=== PATIENT | female | born 1975 | race Caucasian/White ===

== ENCOUNTER 2018-12-23 14:02 | Emergency (ER) | payer MEDICAID ==
[~2018-12-23] VITALS: Ht 154.9 cm; Wt 71.8 kg
[2018-12-23 14:03] VITALS: BP 148/65; PULSE 85; RESP 17; Ht 154.9 cm; Wt 71.8 kg
[2018-12-23] MEDS ORDERED: KETOROLAC 60 MG INJ IM STA (14:22)
[2018-12-23] MEDS ORDERED: NAPR-985 PO (15:08)
[2018-12-23] MEDS ORDERED: MED4DP PO (15:08)
[2018-12-23] MEDS ORDERED: HYDR-4011 PO (15:08)
--- NOTE | 2018-12-23 15:18 | ERD ---
ER Documentation Chief Complaint Chief Complaint RT SHOULDER PAIN X 1 DAY. DENIES ANY INJURY HPI 43-year-old female presenting with right shoulder pain times 1 day. Patient denies any recent falls. She is right-hand dominant. She is cleaning for a living. She states her pain is worse with movement she feels weak. She denies any neck pain. Took Advil with mild alleviation. Denies any numbness or tingling. Denies other medical problems. NKDA. Surgical history denies. Social history denies ROS All systems reviewed and are negative except as per history of present illness. Medications Home Meds Active Scripts Naproxen* (Naprosyn*) 500 Mg Tablet, 500 MG PO BID PRN for PAIN AND/OR INFLAMMATION, #30 TAB Prov:LUIZ IBARRA PA-C 12/23/18 Hydrocodone/Acetaminophen ([place] 5-325 Tablet) 1 Each Tablet, 1 TAB PO Q6H PRN for PAIN, #7 TAB Prov:LUIZ IBARRA PA-C 12/23/18 Methylprednisolone* (Medrol* DOSE PACK) 4 Mg/Dose-Pack Tab.ds.pk, 4 MG PO . DIRECTED, #1 PACKET Prov:LUIZ IBARRA PA-C 12/23/18 Allergies Allergies: Coded Allergies: No Known Drug Allergies (Verified Allergy, Unknown, 06/04/14) PMhx/Soc Medical and Surgical Hx: pt denies Surgical Hx History of Surgery: No Anesthesia Reaction: No Hx Neurological Disorder: No Hx Respiratory Disorders: Yes (ASTHMA) Hx Cardiac Disorders: No Hx Psychiatric Problems: No Hx Miscellaneous Medical Probl: No Hx Alcohol Use: No Hx Substance Use: No Hx Tobacco Use: No Smoking Status: Never smoker FmHx Family History: No diabetes, No coronary disease, No other Physical Exam Vitals Vital Signs Date Temp Pulse Resp B/P (MAP) Pulse Ox O2 O2 Flow FiO2 Time Delivery Rate 12/23/18 97.7 85 17 148/65 98 14:03 (92) Physical Exam GENERAL: The patient is well-appearing, well-nourished, in no acute distress CHEST: Clear to auscultation bilaterally. There are no rales, wheezes or rhonchi. HEART: Regular rate and rhythm. No murmurs, clicks, rubs or gallops. EXTREMITIES: Tender to palpation over the right shoulder with no obvious deformity. No erythema or warmth. No tender to palpation over the clavicle. Pulses intact. No neck tenderness. NEUROLOGIC: Alert and oriented. Cranial nerves II through XII intact. Motor strength in all 4 extremities with 5 out of 5 strength. Sensation grossly intact. Normal speech and gait. Babinski negative. DTR 2+ throughout. SKIN: There is no apparent rash or petechiae. The skin is warm and dry. Results 24 hrs Laboratory Tests Test 12/23/18 14:32 POC Beta HCG, Qualitative NEGATIVE Current Medications Medications Dose Sig/Malik Start Time Status Last (Trade) Ordered Route PRN Stop Time Admin Dose Reason Admin Ketorolac 60 mg ONCE STAT 12/23/18 DC 12/23/18 Tromethamine IM 14:22 14:49 (Toradol) 12/23/18 14:24 Procedures/MDM DIAGNOSTIC IMAGING REPORT Patient: ISSAC SLOAN : 1975 Age: 43 Sex: F MR #: [id number] DOS: 12/23/18 1422 Ordering MD: NORIS IBARRA PA-C Location: [facility] Room/Bed: PROCEDURE: XR right shoulder. CLINICAL INDICATION: shoulder pain TECHNIQUE: AP Internal and external rotation views and transscapular Y-view of the right shoulder were performed. COMPARISON: None. FINDINGS: There is normal osseous mineralization and alignment. No acute fracture or osseous lesion is identified. There are normal joints without evidence of arthritis or dislocation. The soft tissues are unremarkable. IMPRESSION: Unremarkable right shoulder. ER course: Sling given ED. Neuro intact pre-and post splint application. MDM: 43-year-old female presenting with pain to her right shoulder. I have low suspicion for acute fracture dislocation. I have low suspicion for tendon or ligament patient likely has muscular skeletal strain overuse injury. Patient is discharged with strict ER precautions and told to follow-up with primary care within 1-2 days for close evaluation. Patient is told if symptoms change or worsen to return immediately to the ER. All questions answered at discharge Departure Diagnosis: Primary Impression: Shoulder pain Condition: Stable Patient Instructions: Shoulder Pain (Uncertain Cause) Referrals: COMMUNITY CLINICS YOU HAVE RECEIVED A MEDICAL SCREENING EXAM AND THE RESULTS INDICATE THAT YOU DO NOT HAVE A CONDITION THAT REQUIRES URGENT TREATMENT IN THE EMERGENCY DEPARTMENT. FURTHER EVALUATION AND TREATMENT OF YOUR CONDITION CAN WAIT UNTIL YOU ARE SEEN IN YOUR DOCTORS OFFICE WITHIN THE NEXT 1-2 DAYS. IT IS YOUR RESPONSIBILITY TO MAKE AN APPOINTMENT FOR FOLOW-UP CARE. IF YOU HAVE A PRIMARY DOCTOR --you should call your primary doctor and schedule an appointment IF YOU DO NOT HAVE A PRIMARY DOCTOR YOU CAN CALL OUR PHYSICIAN REFERRAL HOTLINE AT IF YOU CAN NOT AFFORD TO SEE A PHYSICIAN YOU CAN CHOSE FROM THE FOLLOWING [facility] [address] [facility] [address] [facility] [facility] [address] [facility] [address] [facility] [address] [facility] [address] [facility]. [address] Additional Instructions: FOLLOW UP WITH YOUR PRIMARY CARE PHYSICIAN TOMORROW.Return to this facility if you are not improving as expected. LUIZ IBARRA PA-C Dec 23, 2018 15:18
== END 2018-12-23 15:20 | disposition home or self-care (01) ==
LOC: FTE 14:02
DX: M25.511 Pain in right shoulder (principal); J45.909 Unspecified asthma, uncomplicated
CPT/HCPCS: 73030; 81025; 96372; J1885; Z7502; Z7610

== ENCOUNTER 2019-06-29 23:10 | Emergency (ER) | payer MEDICAID ==
[~2019-06-29] VITALS: Ht 154.9 cm; Wt 73.7 kg
[~2019-06-29 23:10] MED LIST: ALBU18HF INHALATION; BENZ-6 PO; BENZ200C68 PO; HYDR-4011 PO; IBUP-1542 PO; MED4DP PO; NAPR-985 PO
[2019-06-29 23:13] VITALS: Ht 154.9 cm; Wt 73.7 kg
[2019-06-30] MEDS ORDERED: IPRATROPIUM (NEB) 0.5 MG/2.5 ML AMP NEB STA (01:26)
[2019-06-30] MEDS ORDERED: DEXAMETHASONE 10 MG/ML 1 ML INJ IM STA (01:26)
[2019-06-30] MEDS ORDERED: ALBUTEROL 0.083% (NEB) 2.5 MG/3 ML AMP NEB STA (01:26)
[2019-06-30] MEDS ORDERED: BENZONATATE 100 MG CAP PO ONE (01:30)
[2019-06-30] MEDS ORDERED: IBUPROFEN 800 MG TAB PO ONE (03:00)
[2019-06-30 04:04] VITALS: BP 117/74; PULSE 83; RESP 16
== END 2019-06-30 04:05 | disposition home or self-care (01) ==
LOC: FTE 23:10
DX: J45.909 Unspecified asthma, uncomplicated (principal)
CPT/HCPCS: 71045; 94664; 96372; J1100; Z7502; Z7610